=== PATIENT | male | born 1970 | race Caucasian/White ===

== ENCOUNTER 2021-03-01 21:21 | Emergency (ER) | payer MEDICAID, SELFPAY ==
--- NOTE | 2021-03-01 21:21 | CTR_ITS ---
PROCEDURE INFORMATION: Exam: CT Angiography Head With Contrast, Arteriography Exam date and time: 03/01/2021 9:21 PM Age: 50 years old Clinical indication: Speech disturbance and weakness; Patient HX: Sudden onset of RT facial droop with slurred speech. History of prior stroke. ; Additional info: R sided weakness TECHNIQUE: Imaging protocol: Computed tomography angiography of the head with contrast. Exam focused on the arteries. 3D rendering (Not supervised by radiologist): MIP and/or 3D reconstructed images were created by the technologist. Radiation optimization: All CT scans at this facility use at least one of these dose optimization techniques: automated exposure control; mA and/or kV adjustment per patient size (includes targeted exams where dose is matched to clinical indication); or iterative reconstruction. Contrast material: OMNI 350; Contrast volume: 95 ml; Contrast route: INTRAVENOUS (IV); COMPARISON: CT head wo con* [id number] 03/01/2021 9:22 PM RADIATION DOSE METRICS: Total DLP (mGy-cm): 2564.95 FINDINGS: ANTERIOR CIRCULATION: Right internal carotid artery: There is mild atherosclerotic calcification in the right carotid siphon on without significant stenosis. Right middle cerebral artery: Unremarkable. No occlusion or significant stenosis. No aneurysm. Right anterior cerebral artery: Unremarkable. No occlusion or significant stenosis. No aneurysm. Left internal carotid artery: There is mild vascular calcification in the left carotid siphon without significant stenosis. Left middle cerebral artery: Unremarkable. No occlusion or significant stenosis. No aneurysm. Left anterior cerebral artery: Unremarkable. No occlusion or significant stenosis. No aneurysm. POSTERIOR CIRCULATION: Right vertebral artery: Unremarkable. No occlusion or significant stenosis. No aneurysm. Left vertebral artery: Unremarkable. No occlusion or significant stenosis. No aneurysm. Basilar artery: Unremarkable. No occlusion or significant stenosis. No aneurysm. Right posterior cerebral artery: Unremarkable. No occlusion or significant stenosis. No aneurysm. Left posterior cerebral artery: Unremarkable. No occlusion or significant stenosis. No aneurysm. Brain: No definite mass, mass effect, or midline shift. Cerebral ventricles: No ventriculomegaly. Bones/joints: Unremarkable. No acute fracture. Soft tissues: Unremarkable. PROCEDURE INFORMATION: Exam: CT Angiography Neck With Contrast Exam date and time: 03/01/2021 9:21 PM Age: 50 years old Clinical indication: Speech disturbance and weakness; Patient HX: Sudden onset of RT facial droop with slurred speech. History of prior stroke. ; Additional info: R sided weakness TECHNIQUE: Imaging protocol: Computed tomography angiography of the neck with contrast. 3D rendering (Not supervised by radiologist): MIP and/or 3D reconstructed images were created by the technologist. Radiation optimization: All CT scans at this facility use at least one of these dose optimization techniques: automated exposure control; mA and/or kV adjustment per patient size (includes targeted exams where dose is matched to clinical indication); or iterative reconstruction. Contrast material: OMNI 350; Contrast volume: 95 ml; Contrast route: INTRAVENOUS (IV); COMPARISON: CT head wo con* [id number] 03/01/2021 9:22 PM RADIATION DOSE METRICS: Total DLP (mGy-cm): 2564.95 FINDINGS: Right common carotid artery: No stenosis. No dissection or occlusion. Right internal carotid artery: There is some mild focal plaque and atherosclerotic calcification in the proximal right internal carotid artery which causes mild stenosis in the 20-30 percent range. Right external carotid artery: No occlusion or stenosis of the origin. Left common carotid artery: No stenosis. No dissection or occlusion. Left internal carotid artery: There is some mild atherosclerotic plaque and vascular calcification in the proximal left internal carotid artery which causes approximately 20 percent stenosis as measured according to the NASCET criteria. Left external carotid artery: No occlusion or stenosis of the origin. Right vertebral artery: No stenosis. No dissection or occlusion. Left vertebral artery: No stenosis. No dissection or occlusion. Soft tissues: Normal. No significant soft tissue swelling. Bones/joints: No acute fracture. CT/CT angio headneck* [id number] IMPRESSION: There is no significant intracranial stenosis or occlusion. IMPRESSION: There is no evidence of significant stenosis in the carotid or vertebral arteries in the neck. REFERENCES: NASCET CRITERIA. The degree of internal carotid artery stenosis is based on NASCET criteria. Normal is no stenosis. Mild is less than 50% stenosis. Moderate is 50-69% stenosis. Severe is 70% to 99% stenosis. Total occlusion is no detectable patent lumen.
[2021-03-01 21:22] VITALS: BP 171/100; PULSE 88; RESP 20; TEMP 36.8; O2SAT 94; BMI 27.2
--- NOTE | 2021-03-01 21:22 | CTR_ITS ---
PROCEDURE INFORMATION: Exam: CT Head Without Contrast Exam date and time: 03/01/2021 9:22 PM Age: 50 years old Clinical indication: Speech disturbance and weakness, facial; Patient HX: Sudden onset of RT facial droop with slurred speech. History of prior stroke. ; Additional info: Poss CVA TECHNIQUE: Imaging protocol: Computed tomography of the head without contrast. Radiation optimization: All CT scans at this facility use at least one of these dose optimization techniques: automated exposure control; mA and/or kV adjustment per patient size (includes targeted exams where dose is matched to clinical indication); or iterative reconstruction. Other technique: STROKE PROTOCOL was implemented. COMPARISON: No relevant prior studies available. RADIATION DOSE METRICS: Total DLP (mGy-cm): 1768.61 FINDINGS: Brain: Normal. No hemorrhage. Unremarkable white matter. No mass effect. Cerebral ventricles: No ventriculomegaly. Paranasal sinuses: Visualized sinuses are unremarkable. No fluid levels. Mastoid air cells: Visualized mastoid air cells are well aerated. Bones/joints: Unremarkable. No acute fracture. Soft tissues: Unremarkable. CT/CT head wo con* [id number] IMPRESSION: No acute intracranial abnormality. ASSESSMENT: ASPECTS ([place] Stroke Program Early CT Score) is 10.
[2021-03-01] MEDS: iohexol 350 mg/mL 100 mL Btl IV (21:24)
--- NOTE | 2021-03-01 21:25 | PC.NURSE ---
FSBG 102
--- NOTE | 2021-03-01 21:40 | ECG_ITS ---
[facility] Test Date: 2021-03-01 Pat Name: Ian Luis Department: Room: Gender: Male Waste Hand: : 1970 Requested By: Jarek Garcia Order Number: [id number] Allison MD: Rashmi Nava M.D. Measurements Intervals [place] Rate: 85 P: 63 UT: 167 QRS: 35 QRSD: 89 T: 48 QT: 348 QTc: 415 Interpretive Statements SINUS RHYTHM No previous ECG available for comparison Electronically Signed On 03-02-2021 17:07:38 MOBILITY DEVELOPER by Rashmi Nava M.D. [id number]
--- NOTE | 2021-03-01 21:40 | XRR_ITS ---
PROCEDURE INFORMATION: Exam: XR Chest Exam date and time: 03/01/2021 9:40 PM Age: 50 years old Clinical indication: Other: CVA; Patient HX: Sudden onset of RT facial droop with slurred speech. History of prior stroke. ; Additional info: Weakness TECHNIQUE: Imaging protocol: XR of the chest. Views: 1 view. COMPARISON: CT angio headneck* [id number] 03/01/2021 9:25 PM FINDINGS: Lungs: Unremarkable. No consolidation. Pleural spaces: Unremarkable. No pleural effusion. No pneumothorax. Heart/Mediastinum: Unremarkable. No cardiomegaly. Bones/joints: Unremarkable. XR/XR chest 1V portable [id number] IMPRESSION: No acute findings.
--- NOTE | 2021-03-01 21:41 | W.ED.NEUROSD ---
HPI - Neuro Symptoms/Deficit General: Chief Complaint: Neuro Symptoms/Deficit Stated Complaint: Right sided drooping, slurred speech Time Seen by Provider: 03/01/21 21:21 History of Present Illness: HPI Narrative: 50-year-old male currently an inpatient at a rehabilitation facility, presents with 30 minutes of right-sided facial droop and right-sided weakness. He was able to walk despite his weakness. No language problems, no vision problems. He states that he has had a previous stroke several years ago, but was left with no deficit following the stroke. He is seen initially in CT scan, as he went straight there. Onset (ago): minute(s) (30) Timing confirmed by: other Location: right face, right arm and right leg History of same: No Severity: mild Quality: weak and improving (Possibly) Relieving factors: none Context: sudden onset On Anticoagulants: No Associated symptoms: Reports weakness and other (some mild dizziness now improved); Deny chest pain, cough, diaphoresis, fevers/chills, headache(s), anorexia, nausea, short of breath, syncope or vomiting Treatments Prior to Arrival: none Review of Systems Const: Denies: diaphoresis Card: Denies: chest pain or syncope GI: Denies: nausea or vomiting Neuro: Denies: headache(s) NIH stroke score NIHSS: Level Of Consciousness - 1a: 0 Level Of Consciousness Questions - 1b: Both Correct Level Of Consciousness Commands - 1c: Both Correct Best Gaze - 2: Normal Visual Guillen - 3: No Visual Loss Facial Palsy - 4: Minor Paralysis Motor Arm Right - 5: Drift Motor Arm Left - 5: No Drift Motor Leg Right - 6: Drift Motor Leg Left - 6: No Drift Limb Ataxia - 7: Absent Sensory - 8: Normal Best Language - 9: No Aphasia Dysarthia - 10: Normal Extinction And Inattention - 11: 0 Score: Total Score: 3 Physical Exam Const: COMMON NORMALS: no acute distress ORIENTATION/CONSCIOUSNESS: Yes awake, Yes oriented to person, Yes oriented to place and Yes oriented to time HENMT: COMMON NORMALS: normocephalic, atraumatic and Normal external nose present HEAD & SCALP: normocephalic and atraumatic FACE & SINUS: face not symmetric and no erythema NOSE: Normal external nose present Eye: COMMON NORMALS: Equal, round and reactive pupils present, EOMs intact bilaterally and conjunctivae normal CONJUNCTIVA: Yes conjunctivae normal PUPIL: Yes Equal, round and reactive pupils present Chest: COMMONS NORMALS: normal inspection of the chest Resp: COMMON NORMALS: normal respiratory effort, No use of accessory muscles and clear to auscultation bilaterally AUSCULTATION: clear to auscultation bilaterally Cardio: COMMON NORMALS: regular rate and regular rhythm RATE: regular rate RHYTHM: regular rhythm GI: COMMON NORMALS: Normal to inspection, nondistended, normoactive bowel sounds present and Soft to palpation PALPATION: Yes Soft to palpation Extremity: COMMON NORMALS: normal to inspection Neuro: SENSORIUM/ORIENTATION: Yes oriented to person, Yes oriented to place and Yes oriented to time Course Consultations: Consultation #1: KEANU Alvarez stroke team Time: 21:51 Vital Signs: Vital signs: Vital Signs Temperature 98.3 F 03/01/21 21:22 Pulse Rate 88 03/01/21 21:22 Respiratory Rate 20 H 03/01/21 21:22 Blood Pressure 171/100 03/01/21 21:22 Pulse Oximetry 94 03/01/21 21:22 MDM - Neuro Symptoms/Deficit MDM Narrative: Medical decision making narrative: 50-year-old male he seems to be improving, his NIH scale is a three on my exam, as he is positive for mild right-sided upper and lower extremity weakness with right-sided facial droop. The symptoms are mild, as he is able to use both the arm and the leg, and has no signs of disabling deficit. I contacted the stroke team at [facility], and neurology saw the patient via telemedicine. He agrees with the mild right-sided weakness symptoms, and does not recommend TPA based on the mild symptoms that seems to be improving at this point with a low NIH score. The patient has already been to CTA, which is deemed negative for large occlusion. His CT, noncontrast is obviously negative as well. His labs are not remarkable. Neurology recommendations are observation admission, MRI, echo, atorvastatin 80, and full dose aspirin. He was given full dose aspirin and atorvastatin in the ER. When counseling the patient on his diagnosis, and need for admission, the patient requested to go home and continue his work-up as an outpatient. Warning signs were given to the patient including worsening symptoms, worsening stroke, worsening weakness, and the potential of given the fact that he has just had a stroke and is electing to go home. The patient accepted those risks, and still requests to go home on medical therapy and come back as an outpatient for his echo and MRI. These have been ordered as an outpatient. Case management will follow up with the patient for these tests. The patient does have a primary care physician, but is looking for a new one.. Lab Data: Labs: Lab Results 03/01/21 03/01/21 03/01/21 21:40 21:40 21:40 WBC 7.4 10^3/uL 10^3/ uL (4.0-10.0) RBC 4.60 10^6/uL 10^6 /uL (4.1-5.3) Hgb 14.2 g/dL g/dL (11.7-16.6) Hct 41.6 % L % (42.0-52.0) MCV 90.4 fl fl (80-94) MCH 30.9 pg pg (28.0-34.0) MCHC 34.1 g/dL g/dL (30.0-36.0) RDW 13.3 % % (12.1-15.1) Plt Count 214 10^3/cmm 10^3 /cmm (130-400) MPV 10.0 fL fL (7.4-10.4) Neut % (Auto) 39.1 % % Lymph % (Auto) 44.2 % % [place] % (Auto) 11.9 % % Eos % (Auto) 4.2 % % Baso % (Auto) 0.5 % % Neut # (Auto) 2.89 10^3/uL 10^3 /uL (1.8-7.7) Lymph # (Auto) 3.3 10^3/uL 10^3/ uL (0.8-4.8) [place] # (Auto) 0.9 10^3/uL 10^3/ uL (0.2-0.9) Eos # (Auto) 0.3 10^3/uL 10^3/ uL (0.0-0.8) Baso # (Auto) 0.0 10^3/uL 10^3/ uL (0.0-0.1) Nucleated RBC % (a uto) 0 % % Nucleated RBCs # 0.0 /100WBC /100W BC PT 12.60 SECONDS SEC ONDS (12.1-14.9) INR 0.91 (0.8-1.2) APTT 30.2 SECONDS SECO NDS (23.9-36.7) Sodium 136 mmol/L mmol/L (136-145) Potassium 4.7 mmol/L mmol/L (3.5-5.1) Chloride 103 mmol/L mmol/L (98-107) Carbon Dioxide 25 mmol/L mmol/L (22-29) Anion Gap 12.7 (5-19) BUN 23 mg/dL H mg/dL (6-20) Creatinine 0.9 mg/dL mg/dL (0.7-1.2) GFR Calculation 88.6 mL/min L mL/ min (90-130) Glucose 85 mg/dL mg/dL (65-115) Calculated Osmolal ity 285 mOsm/kg mOsm/ kg (285-295) Calcium 8.5 mg/dL mg/dL (8.5-10.5) Total Bilirubin 0.2 mg/dL mg/dL (0.15-1.2) AST 39 U/L U/L (0-40) ALT 74 U/L H U/L (0-41) Alkaline Phosphata se 91 IU/L IU/L (40-130) Total Protein 6.9 g/dL g/dL (6.6-8.7) Albumin 3.8 g/dL g/dL (3.5-5.2) Globulin 3.1 g/dL g/dL (1.3-4.6) Urine Color Urine Appearance Urine pH Ur Specific Gravit y Urine Protein Urine Glucose (UA) Urine Ketones Urine Blood Urine Nitrate Urine Bilirubin Urine Urobilinogen Ur Leukocyte Becky ase Urine Opiates Scre en Ur Barbiturates Sc reen Ur Phencyclidine S crn Ur Amphetamines Sc reen U Benzodiazepines Scrn Urine Cocaine Scre en U Marijuana (THC) Screen 03/01/21 03/01/21 23:21 23:21 WBC RBC Hgb Hct MCV MCH MCHC RDW Plt Count MPV Neut % (Auto) Lymph % (Auto) [place] % (Auto) Eos % (Auto) Baso % (Auto) Neut # (Auto) Lymph # (Auto) [place] # (Auto) Eos # (Auto) Baso # (Auto) Nucleated RBC % (a uto) Nucleated RBCs # PT INR APTT Sodium Potassium Chloride Carbon Dioxide Anion Gap BUN Creatinine GFR Calculation Glucose Calculated Osmolal ity Calcium Total Bilirubin AST ALT Alkaline Phosphata se Total Protein Albumin Globulin Urine Color Yellow (Yellow) Urine Appearance Clear (CLEAR) Urine pH 7 (5-7) Ur Specific Gravit y 1.010 (1.005-1.030) Urine Protein Neg (Negative) Urine Glucose (UA) Norm (Normal) Urine Ketones Negative (Negative) Urine Blood Neg (Negative) Urine Nitrate Negative (Negative) Urine Bilirubin Neg (Negative) Urine Urobilinogen Norm mg/dL mg/dL (Negative) Ur Leukocyte Becky ase Negative (Negative) Urine Opiates Scre en Negative ng/mL ng /mL (Negative) Ur Barbiturates Sc reen Negative ng/mL ng /mL (Negative) Ur Phencyclidine S crn Negative ng/mL ng /mL (Negative) Ur Amphetamines Sc reen Negative ng/mL ng /mL (Negative) U Benzodiazepines Scrn Negative ng/mL ng /mL (Negative) Urine Cocaine Scre en Negative ng/mL ng /mL (Negative) U Marijuana (THC) Screen Positive ng/mL H ng/mL (Negative) Discharge Plan Discharge Patient Disposition: Home Clinical Impression: Cerebrovascular accident Qualifiers: CVA mechanism: embolism Precerebral and cerebral artery: middle cerebral artery Laterality of affected vessel: left Qualified Code(s): I63.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 Condition: Stable Prescriptions: New atorvastatin 80 mg tablet 80 mg PO DAILY Qty: 30 RF: 0 aspirin 325 mg tablet 325 mg PO DAILY Qty: 30 RF: 0 No Action trazodone 50 mg Tablet 50 mg PO QPM RF: 0 olanzapine 5 mg Tablet 5 mg PO QPM RF: 0 propranolol 20 mg Tablet 20 mg PO TID PRN (Reason: Anxiety) RF: 0 lisinopril 40 mg Tablet 40 mg PO DAILY RF: 0 naproxen 500 mg Tablet 500 mg PO TID PRN (Reason: Pain) RF: 0 bupropion HCl 300 mg Tablet Extended Release 24 Hr 300 mg PO QAM RF: 0 Discharge Orders: Discharge ED (Routine); Ordered 03/02/21 Ordered By: Jarek Zheng Discharge Diet: Advance as tolerated Discharge Activity: Resume usual activity Patient Instructions: Ischemic Stroke (DC) Activity Restrictions/Additional Instructions: Case management will give you a call at the beginning of the week to schedule your outpatient MRI and echocardiogram. They will also set you up with an appointment for follow up. Coding Level of Care Code ED Labor Economics Professor for Sirena Sen
[2021-03-01 21:48] LABS: Basophils % 0.5 %; Eosinophils # 0.3 10^3/uL (0.0-0.8); Eosinophils % 4.2 %; Hematocrit 41.6 % (42.0-52.0); Hemoglobin 14.2 g/dL (11.7-16.6); Lymphocytes # 3.3 10^3/uL (0.8-4.8); Lymphocytes % 44.2 %; Mean Corpuscular HGB Conc 34.1 g/dL (30.0-36.0); Mean Corpuscular Hemoglobin 30.9 pg (28.0-34.0); Mean Corpuscular Volume 90.4 fl (80-94); Monocytes # 0.9 10^3/uL (0.2-0.9); Monocytes % 11.9 %; Neutrophils # 2.89 10^3/uL (1.8-7.7); Neutrophils % 39.1 %; Nucleated Red Blood Cells % 0 %; Platelet Count 214 10^3/cmm (130-400); Red Cell Distribution Width 13.3 % (12.1-15.1); White Blood Count 7.4 10^3/uL (4.0-10.0)
[2021-03-01 21:59] LABS: INR 0.91 (0.8-1.2)
[2021-03-01 22:00] LABS: Partial Thromboplastin Time 30.2 SECONDS (23.9-36.7)
[2021-03-01 22:05] LABS: Alanine Aminotransferase 74 U/L (0-41); Albumin Level 3.8 g/dL (3.5-5.2); Alkaline Phosphatase 91 IU/L (40-130); Aspartate Amino Transferase 39 U/L (0-40); Blood Urea Nitrogen 23 mg/dL (6-20); Calcium 8.5 mg/dL (8.5-10.5); Carbon Dioxide 25 mmol/L (22-29); Chloride 103 mmol/L (98-107); Globulin 3.1 g/dL (1.3-4.6); Glomerular Filtration Rate 88.6 mL/min (90-130); Glucose 85 mg/dL (65-115); Osmolality Calculated 285 mOsm/kg (285-295); Sodium 136 mmol/L (136-145); Total Bilirubin 0.2 mg/dL (0.15-1.2); Total Protein 6.9 g/dL (6.6-8.7)
[2021-03-01 22:10] LABS: Anion Gap 12.7 (5-19); Potassium 4.7 mmol/L (3.5-5.1)
[2021-03-01 23:23] LABS: Add Urine Microscopic? NO; Charge for UA Resulting for Rev
[2021-03-01 23:27] LABS: Bilirubin Urine Neg (Negative); Blood Urine Neg (Negative); Glucose Urine UA Norm (Normal); Ketones Urine Negative (Negative); Leukocyte Esterase Urine Negative (Negative); Nitrate Urine Negative (Negative); Protein Urine Neg (Negative); Urine Appearance Clear (CLEAR); Urine Color Yellow (Yellow); Urobilinogen Urine Norm (Negative); pH Urine 7 (5-7)
[2021-03-01] MEDS: atorvastatin 40 mg Tablet 80 MG PO (23:28)
[2021-03-01] MEDS: aspirin 325 mg Tablet PO (23:28)
[2021-03-01 23:36] LABS: Amphetamines Screen Urine Negative (Negative); Barbiturates Screen Urine Negative (Negative); Benzodiazepines Screen Urine Negative (Negative); Cocaine Screen Urine Negative (Negative); Opiate Screen Urine Negative (Negative); PCP Screen Urine Negative (Negative); THC Screen Urine Positive (Negative)
--- NOTE | 2021-03-05 15:36 | DCPLANNER ---
Addendum entered by Holly Mendosa 03/06/21 13:27: telecommunications manager noticed that patient does not have a primary care physician listed in chart. telecommunications manager called patient on 03.05.21 at 3:15 unable to speak with patient a voicemail was left for patient to return machine adjuster leader case trim phone call. telecommunications manager attempted to call patient again on 03.06.21 at 1:20, unable to speak with patient again. telecommunications manager left a voicemail for patient to return case mangers phone call. Original Note: telecommunications manager had message to schedule an outpatient MRI and echo for patient. telecommunications manager faxed signed order to centralized scheduling, who will call patient with appointment information.
== END 2021-03-02 02:26 | disposition home or self-care (01) ==
PROVIDERS: Emergency Provider Emergency Medicine
DX: I63.412 Cerebral infarction due to embolism of left middle cerebral artery (principal)
CPT/HCPCS: 70450; 70496; 70498; 71045; 80053; 80306; 81003; 85025; 85610; 85730; 93005; 99283; Q9967

== ENCOUNTER → 2021-03-04 14:56 | Outpatient (BNVA) | payer MEDICAID, SELFPAY | PROVIDERS: Visit Provider Internal Medicine | DX: R76.8 Other specified abnormal immunological findings in serum (principal); B19.20 Unspecified viral hepatitis C without hepatic coma; B18.2 Chronic viral hepatitis C | CPT/HCPCS: 82105; 87522; 87902 ==